=== PATIENT | female | born 1955 | race Caucasian/White ===

== ENCOUNTER 2017-02-09 09:34 | Emergency (ER) | payer OTHER ==
[~2017-02-09] VITALS: Ht 157.5 cm; Wt 68.2 kg
[~2017-02-09 09:34] MED LIST: BENZ200C44 PO; BUPR300T51 PO; HYDR25TA4 PO; LISI-571 PO; NAPR220C11 PO; PRAM0.75 PO; TIROSINT PO; crestor PO
[2017-02-09 09:47] VITALS: BP 144/81; RESP 12; O2SAT 98
--- NOTE | 2017-02-09 10:00 | ED.REPORT ---
HPI-Eye Problem Date of Service February 09, 2017 ED Provider: The patient is a 61 yo with history of restless leg syndrome, HTN, and hypothyroidism who was sent to the ED from for an acute onset of left eye pain started yesterday around 1230. Patient reports very sudden onset of the eye pain while she was sitting in the car. The eye pain has progressively worsened overnight. She admits to sharp, throbbing pain behind her left eye and left temporal area that now radiates to the left frontal. She also admits to severe headache, lightheadedness, photosensitivity, blurry vision, sensation of swollen eye, and watery eye discharge. She reports worsening pain with light and touching the eye. Her vision is blurry, but no loss of vision. No alleviating factor. No foreign body sensation or eye itching. She denies jaw pain/claudication, dysphagia, slurred speech, facial droop, focal weakness, nausea, vomiting, neck stiffness, abdominal pain, numbness, tingling, fever, or chills. Patient has never had any similar symptoms in the past. Patient denies history of glaucoma or other eye issue. Last eye exam was a year ago. No family history of arthritis or vasculitis. Nursing Notes Stated Complaint: LEFT EYE SWOLLEN Chief Complaint: Eye Nursing Notes Reviewed: Yes Allergies: Coded Allergies: codeine (Verified Allergy, Intermediate, Rash, 02/02/16) rash, nausea, vomiting Scheduled ([crestor]) 1 TABLET PO DAILY ([tirosint]) 1 CAPSULE PO DAILY Benzonatate (Benzonatate) 200 Mg Capsule 200 MG PO TID Bupropion ER (Wellbutrin XL) 300 Mg Tab.er.24h 300 MG PO DAILY Hydrochlorothiazide (Hydrochlorothiazide) 25 Mg Tablet 25 MG PO DAILY Lisinopril (Lisinopril) 5 Mg Tablet 5 MG PO DAILY Pramipexole Dihydrochloride (Mirapex) 0.75 Mg Tablet 0.75 MG PO TID Prednisone (PredniSONE) 20 Mg Tablet 60 MG PO DAILY Scheduled PRN Hydrocodone-Acetaminophen 5-325 mg (Hydrocodone-Acetaminophen 5-325 mg) 1 Each Tablet 1 TABLET PO Q4H PRN PRN For Pain Miscellaneous Medications Naproxen Sodium (Aleve) 220 Mg Capsule 220 MG PO General Time Seen by MD: 10:00 Chief Complaint Left eye affected, Decreased vision, Pain, Swelling Hx Obtained From: Patient Arrived By: Walk-in Sudden in Onset?: Yes Onset Occurred: Yesterday Symptom Duration: Since onset Progression Since Onset: Rapidly worsening Location: : Eye left: Periorbital left Quality: Sharp, Throbbing Radiation: Radiation present (to temporal and frontal areas) Severity: Current: Pain level 7 out of 10 Severity: Maximum: Pain level 8 out of 10 Associated with: Reports: Blurred vision, Eye tearing, Photophobia Pertinent Negative: Pt denies other symptoms Exacerbated by: Light, Touching Relieved by: Eyes closed, Dark room Recent Healthcare: No recent doctor visit, No recent hospitalization Similar Sx Previous: No Past Medical History Past Medical History Restless leg syndrome Reports: GERD, Hyperlipidemia, Hypertension Reports: Depression, Thyroid disease Past Surgical History R arm, L thumb Reports: Cholecystectomy Reports: Back/neck surgery, Tubal ligation Family History Reports: Diabetes mellitus (brother) Smoking History Former Smoker Social History Alcohol Use: 1-3 per day Drug Use: Denies drug use 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, 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 Ambulatory Status Independent Review of Systems Basic Review of Systems Respiratory: No shortness of breath, No cough, No wheeze Cardiovascular: No chest pain, No dyspnea on exertion GI: No abdominal pain, No nausea, No vomiting Musculoskeletal: No extremity swelling, No extremity pain, Full range of motion , Joints NL Hematologic: No bleeding, No bruising Psychiatric: Normal thought content Constitutional: Denies: Chills, Fatigue, Fever Eyes: Denies: Blurred left, Discharge left, Eye pain left, Photophobia Ears / Nose / Throat: Denies: Ear ringing bilateral, Earache bilateral, Nasal congestion, Nose bleeding, Sinus problem, Toothache Skin: Denies Bruising, Denies Diaphoresis, Denies Itching, Denies Rash Neurologic: Reports: Headache, Lightheaded, Denies: Abnormal movement, Bladder dysfunction, Bowel dysfunction, Confusion , Dizziness, Focal weakness, Numbness, Slurred speech, Syncope, Weakness Complete sys rev & neg: except as marked. Respiratory: Denies: Dyspnea on exertion, Non-productive cough, Pleuritic pain , Shortness of breath Cardiovascular: Denies: Chest pain, Dyspnea on exertion, Edema, Orthopnea GI: Denies: Abdominal pain, Dysphagia, Nausea, Vomiting Female: Denies: Dysuria, Hematuria Musculoskeletal: Denies: Back pain, Extremity pain, Extremity swelling Psychiatric: Denies: Agitation, Anxiety, Change mental status, Confusion, Depression, Stress Physical Exam Initial Vital Signs Vital Signs (First) Date Time Temp Pulse Resp B/P Pulse Ox O2 Delivery O2 Flow Rate FiO2 02/09/17 09:47 36.1 69 12 144/81 98 Room Air Initial VS: Reviewed Head / Eyes: Atraumatic, PERRL, EOMI, No periorbital swelling, No scleral icterus Complete left eye exam: noconsensual photophobia, pupils equal round and reactive to light. Ocular movements intact. No conjunctiva erythema with mild clear eye discharge. No eyelid edema. No uptake of Fluorescein, Pablito-Pen pressures are 15, 20, 15. Tenderness to palpation over the left temporal artery. Mild increase in pain with jaw movement. No TMJ crepitus. No vesicular lesion to the ear canal or face. Consent signed. Neurologic: Oriented X3, Speech NL, No motor deficits, No sensory deficits, CN II - XII intact, Memory NL Neck: Atraumatic, Supple, No meningismus, Full range of motion, No adenopathy, No swelling, Non-tender Respiratory / Chest: Atraumatic, Breath sounds NL, Breath sounds = bilat, No respiratory distress, No rales Cardiovascular: Heart rate NL, Regular rhythm, Heart sounds NL, No gallop, No murmurs, Cap refill not delayed, Pulses = bilaterally Abdomen: Atraumatic, Soft, Non-tender, No guarding, No rebound, BS normoactive , No distention Interpretation & Diagnostics Lab Results Interpretation Result Diagram: 02/09/17 1040 02/09/17 1040 Test 02/09/17 10:40 White Blood Count 8.4th/mm3 (3.8-10.1) Red Blood Count 4.14mil/mm3 (3.90-5.20) Hemoglobin 10.8g/dL (12.0-15.6) Hematocrit 34.2% (35.0-46.0) Mean Corpuscular Volume 82.6fL (81-100) Mean Corpuscular Hemoglobin 26.1pg (27.0-35.0) Mean Corpuscular Hemoglobin Concent 31.6% (32.0-37.0) Red Cell Distribution Width 14.4% (12.3-15.4) Platelet Count 291bil/L (150-400) Neutrophils (%) (Auto) 72.5% (40-74) Lymphocytes (%) (Auto) 16.3% (14-46) Monocytes (%) (Auto) 8.5% (4-12) Eosinophils (%) (Auto) 1.7% (0-5) Basophils (%) (Auto) 0.5% (0-3) Erythrocyte Sedimentation Rate 24mm/hr (0-40) Sodium Level 143mEq/L (134-144) Potassium Level 4.4mEq/L (3.5-5.2) Chloride Level 105mEq/L (97-108) Carbon Dioxide Level 26mmol/L (18-29) Blood Urea Nitrogen 13mg/dL (8-27) Creatinine 0.58mg/dL (0.57-1.00) Estimat Glomerular Filtration Rate 150mL/min (>59) Glucose Level 103mg/dL (60-99) Calcium Level 9.0mg/dL (8.5-10.1) Total Bilirubin 0.8mg/dL (0.0-1.2) Aspartate Amino Transf (AST/SGOT) 22U/L (0-50) Alanine Aminotransferase (ALT/SGPT) 19U/L (0-32) Alkaline Phosphatase 145U/L (25-165) Total Protein 6.4g/dL (6.4-8.4) Albumin 3.8g/dL (3.4-5.0) Hold Alonzo Top Tube Received (Received) Re-Eval/Medical Decision Med Decision/Clinical Course Differential diagnosis: Giant cell arteritis, closed-angle glaucoma, herpetic keratitis, conjunctivitis, iritis/uveitis, conjunctival laceration, TIA, or migraine/cluster headache. Consultation #2: Ophthalmology - [facility] at [address] Dr[address] Sepulveda agreed to see the patient for eye pain as long as we did all the workups for the temporal arteritis. Dr. Sepulveda is the only available principal android developer this week and she works in the [place] office. The only doctor in [facility] is an trailer truck driver. Given the patient's severe symptoms, I think it is better for Dr. Sepulveda to see the patient. The next available appointment will be 1100am tomorrow 02/10/17 in [facility]. Consultation #3: Neurology - Dr. Ronald Corona at [address] Dr. Corona is concerned of a possible aneurysm or dissection and thus recommends a MRI stroke protocol. We will contact him once we get the result of the MRI. If the MRI cannot be done today, Dr. Corona recommends a 24-hour observation to get the MRI done. At 1605: MRI result was discussed with Dr. Corona. He agreed with continue the Prednisone 60mg daily until temporal arteritis is ruled out. He will contact the patient for appointment sometime this week. Re-Evaluation/Progress : Time of Eval: 16:15 Patient Status: Condition improved Re-Evaluation/Progress Note: Patient reports mild improvement of the eye pain and headache, but it is still persistent. Discharge plan was discussed with the patient and her . Consultation : Referral / Consult Name: Gray Michelle MD Consulted With: Surgeon Requested Call at: 12:45 Call Returned at: 13:15 Food Service Assistant: Will see in office, Referred to other consult Note: Dr. Michelle stated that the chance of temporal arteritis is low especially with a normal ESR. However, he agreed with the plan to start steroid and will see the patient in his office because due to his schedule, he will not get to this patient today. Patient's name and phone number was given. Dr. Michelle also recommended ophthalmology and neurology referral as well. Severity: Serious condition Counseled Regarding: Diagnosis, Lab results, Need for follow-up, When/why to return to ED Discharge & Departure Shift Change Sign-Out Patient Care Transferred: No Discussed Complaint(s): Yes Laboratory Evaluation: Lab evaluation discussed Imaging Studies: Imaging discussed Procedures: Results discussed Primary Impression: Headache Headache type: unspecified Headache chronicity pattern: acute headache Intractability: intractable Qualified Code: R51 - Headache Additional Impression: Acute left eye pain Disposition: Home Discharge Condition All VS Reviewed: Yes Condition: Stable Patient Instructions: Acute Headache (ED), Eye Pain (ED) Additional Instructions: The onset of your headache and eye pain is quite sudden and there is concerns for a condition called giant cell or temporal arteritis. This is a very rare disorder and the only way to confirm it is a biopsy. This will be done by a surgeon. I already contacted Dr. Michelle and he will contact you in a next few days to arrange a follow up visit and possible biopsy. There are also other possible reason for your eye pain, including glaucoma, migraine/cluster headache, etc. We are unsure of the exact cause at this point. Therefore, I called both the neurologist and opthalmologist for their inputs. You have an appointment with Dr. Dinh at [facility] in [place] tomorrow 02/10/17 at 1100 am. Please try to go to the appointment. Dr. Corona of neurology was also consulted and he will contact you for an appointment sometime this week. It is reassuring that both your CT and MRI of the head was normal. No mass, bleeding, stroke, or aneurysm was found on either the CT or MRI. Theres was possible finding of sinusitis on the MRI, but since you do not have any symptoms of sinusitis, antibiotic is not indicated at this point. Please take the Prednisone as directed daily. This will help with your pain and can treat the possible temporal arteritis. I also gave you a prescription for Vicodin to take as needed for severe pain. Please use it sparingly. You should not be driving or operate machine with your current symptoms. Please get some rest and drink plenty of water. Return to the ER if you note any change in mental status, slurred speech, facial droop, or weakness. Referrals: Jewels Mcgregor PA-C (PCP) Lizz Dinh MD 1 Day Appointment at 1100am on 02/10/[address] [facility] in [place], [place]. Gray Michelle MD, Peter J MD Crit Care Except Billable Proc Time Spent: 75-104 minutes Services Performed: Patient management by me, Time spent at bedside, Reviewing test results Critical Care Notes: See MDM Attending Statement The patient was seen and examined together with Dr. Ross on 02/09/17 and I agree with the history, exam and plan as outlined in the note above. copies to: Jewels Mcgregor PA-C; Lizz Dinh MD; Gray Michelle MD; Ronald Corona MD, Timothy S DO February 09, 2017 10:00 Clary Ross DO February 09, 2017 10:28
[2017-02-09] MEDS ORDERED: Tetracaine 0.5% 4 mL Ophthalmic Solution ONE (10:04)
[2017-02-09] MEDS ORDERED: 0.9% Sodium Chloride Inhalation Solution ONE (10:06)
[2017-02-09] MEDS ORDERED: Fluorescein 0.6 mg Ophthalmic Strip ONE (10:06)
[2017-02-09] MEDS ORDERED: Ondansetron 2 mg/mL 2 mL Inj IVPUSH PRN (10:45)
[2017-02-09 11:00] LABS: BASOPHILS % (AUTO) 0.5 % (0-3); EOSINOPHILS % (AUTO) 1.7 % (0-5); MONOCYTES % (AUTO) 8.5 % (4-12); Mean Corpuscular Hemoglobin 26.1 pg (27.0-35.0); Mean Corpuscular Volume 82.6 fL (81-100); NEUTROPHILS % (AUTO) 72.5 % (40-74); Platelet Count 291 bil/L (150-400)
--- NOTE | 2017-02-09 11:14 | DRSVH ---
PROCEDURE: CT BRAIN WITHOUT CONTRAST ([id number]) INDICATIONS: headache TECHNIQUE: Noncontrast 4.5 mm thick angled axial sections acquired from the foramen magnum to the vertex, with c oronal reformats. COMPARISON: [facility], CT, CT BRAIN WO CON, 02/02/2016, 11:41. FINDINGS: Image quality: Excellent. CSF spaces: Basal cisterns are patent. No extra-axial fluid collections. Ventricles are normal in size and shape. Brain: No midline shift. No intracranial masses or hemorrhage. Luevano-white matter interface is norm al. Skull and face: Calvarium and visualized facial bones are intact, without suspicious lesions. Sinuses: Visualized sinuses and mastoids are clear. IMPRESSION: Source of headache is not seen. Dictated by: Nura Hardwick M.D. on 02/09/2017 at 11:12 Approved by: Nura Hardwick M.D. on 02/09/2017 at 11:13
[2017-02-09 11:30] VITALS: BP 144/82; PULSE 74; RESP 17; O2SAT 99
[2017-02-09 12:51] LABS: ERYTHROCYTE SEDIMENTATION RATE 24 mm/hr (0-40)
[2017-02-09] MEDS ORDERED: ProchlorPERazine 5 mg/mL 2 mL Inj IVPUSH ONE (12:55)
[2017-02-09] MEDS ORDERED: predniSONE 20 mg Tablet PO ONE (13:25)
--- NOTE | 2017-02-09 15:39 | DRSVH ---
PROCEDURE: MRI STROKE PROTOCOL ([id number]) Pre- and post-contrast brain MRI, non-contrast brain MR angiogram, pre- and postcontrast neck MR antonina ogram INDICATIONS: Severe headache TECHNIQUE: Brain: Noncontrast axial T1 spin echo, axial T2 fast spin echo, sagittal and axial FLAIR, coronal T2 fast spin echo, axial gradient echo, axial diffusion and ADC through the brain. After the administr ation of contrast, axial 3D VIBE of the cranial vasculature and brain. Brain MRA: Non-contrast 3-D time of flight MR angiogram, with multiple nxkxeuo-nfxnvaueq-vevbvpiedd (MIP) reformats performed. Neck MRA: Axial and sagittal TruFISP through the neck. Coronal dynamic MR angiogram during administ ration of contrast in the arterial and venous phases, with 3-dimenstional nvaizjm-pbahqowgx-pkigirsdf n (MIP) reformats constructed from subtraction images. COMPARISON: [facility], CT, CT BRAIN WO CON, 02/09/2017, 11:07. [facility], CT, CT BRAIN WO CON, 02/02/2016, 11:41. FINDINGS: Image quality: Excellent. BRAIN: CSF spaces: Ventricles are normal in size and shape. Basal cisterns are patent. No extra-axial flu id collections. Brain: No intracranial bleeds or mass effects. Luevano-white matter interface is normal. Diffusion we ighted images show no acute ischemic insults. Brainstem appears normal. Normal intravascular flow v oids are present. No abnormal intracranial enhancement. Skull and face: Calvarial marrow signal is normal. Orbits appear normal. Sinuses: Sinuses and mastoids are clear except for opacification of the left sphenoid sinus. BRAIN MR ANGIOGRAM: Anterior circulation: Intracranial internal carotid arteries are normal in size and enhancement. Th e flow within the paired anterior cerebral arteries is normal and symmetric. The flow within the mid dle cerebral arteries is normal and symmetric. The anterior communicating artery is seen. No stenos es, occlusions, or aneurysms. Posterior circulation: The visualized portions of the vertebral arteries demonstrate normal caliber, and join to form a normal appearing basilar artery. The flow within the posterior cerebral arteries is normal and symmetric. No stenoses, occlusions, or aneurysms. NECK MR ANGIOGRAM: Carotids: Great vessels demonstrate a conventional anatomy as they arise from the aortic arch. The origins of the common carotid arteries appear patent. The calibers and courses of both common caroti d arteries are normal. The bifurcation regions appear normal bilaterally. The internal carotid pérez gian demonstrate normal course and caliber. Posterior circulation: The origins of the vertebral arteries appear patent. More superior portions of both vertebral arteries demonstrate normal course and caliber, and join to form a normal appearing basilar artery. Miscellaneous: Subclavian arteries appear patent. Pre-contrast images through the neck show no soft tissue abnormalities. IMPRESSION: BRAIN MRI: No bradycardic normal abnormalities found. There is opacification of the left sphenoid si nus, which was only partially opacified 02/02/16. Please correlate for whether sphenoid sinusitis cou ld explain current symptomatology. BRAIN MR ANGIOGRAM: Normal intracranial MR angiogram. NECK MR ANGIOGRAM: Normal cervical MR angiogram. The estimate of stenosis included in the report of the imaging study was calculated using the NASCET method Dictated by: Nura Hardwick M.D. on 02/09/2017 at 15:35 Approved by: Nura Hardwick M.D. on 02/09/2017 at 15:37
[2017-02-09] MEDS ORDERED: HYDR-4003 PO (16:31)
[2017-02-09] MEDS ORDERED: PRE20 PO (16:31)
[2017-02-09 16:41] VITALS: BP 127/65; PULSE 78; RESP 18; O2SAT 98
== END 2017-02-09 16:41 | disposition home or self-care (01) ==
LOC: SED 09:34
DX: R51 Headache (principal); H57.12 Ocular pain, left eye; K21.9 Gastro-esophageal reflux disease without esophagitis; E78.5 Hyperlipidemia, unspecified; I10 Essential (primary) hypertension; E03.9 Hypothyroidism, unspecified; Z87.891 Personal history of nicotine dependence; Z88.5 Allergy status to narcotic agent
CPT/HCPCS: 36415; 70450; 70549; 70553; 80053; 81002; 85025; 85651; 96374; 96375; 96376; 99291; 99292; A9585; J0780; J1200; J2270; J2405